=== PATIENT | female | born 1940 | race Caucasian/White ===

== ENCOUNTER 2019-02-07 14:55 | Inpatient (IN) | payer BC, OTHER ==
[~2019-02-07] VITALS: Ht 177.8 cm; Wt 105.1 kg
[2019-02-07] MEDS ORDERED: SODIUM CHLORIDE 0.9% 1,000 ML IV ONE ×2 (16:00→19:15)
[2019-02-07 16:05] LABS: Basophils # (auto) 0.1 uL; Eosinophils # (auto) 0.1 uL; Eosinophils % (auto) 0.9 % (0.0-7.0); Hematocrit 46.5 % (36.0-46.0); Hemoglobin 15.1 g/dL (12.2-16.2); Lymphocytes # (auto) 1.1 uL; Mean Corpuscular Hemoglobin 29.1 pg (28.0-32.0); Mean Corpuscular Hgb Conc. 32.5 g/dL (32.0-36.0); Mean Corpuscular Volume 89.5 fL (80.0-100.0); Monocytes # (auto) 0.9 uL; Monocytes % (auto) 7.9 % (0.0-12.0); Neutrophils # (auto) 8.9 uL; Neutrophils % (auto) 80.2 % (37.0-80.0); Platelet Count (auto) 265 10^3/uL (140-450); Red Cell Distribution Width 14.7 % (11.8-14.3); White Blood Cell 11.1 10^3/uL (4.4-10.8)
[2019-02-07 16:23] LABS: Magnesium 1.9 mg/dL (1.6-2.6)
[2019-02-07 16:33] LABS: INR 0.92 (0.9-1.15); Partial Thromboplastin Time 24.1 sec (23.64-32.05)
[2019-02-07 18:52] LABS: Albumin 3.6 g/dL (3.4-5.0); Calcium 9.4 mg/dL (8.5-10.1); Potassium 5.2 mmol/L (3.5-5.1)
[2019-02-07 19:01] LABS: BUN/Creatinine Ratio 16.1; Bilirubin, Total 1.4 mg/dL (0.2-1.0)
[2019-02-07] MEDS ORDERED: InsuLIN REG 1unit/0.01ml Soln (100units/ml) IV ONE (19:15)
[2019-02-07] MEDS ORDERED: GABAPENTIN 100 MG CAP PO ONE (20:00)
[2019-02-07] MEDS ORDERED: NITROGLYCERIN 0.4 MG SL TAB SL PRN (20:15)
[2019-02-07] MEDS ORDERED: DEXTROSE (50%) 50ML SYRG IV PRN (20:15)
[2019-02-07] MEDS ORDERED: MORPHINE SULF INJ 2 MG/ML SYRINGE 1ML IV PRN (20:15)
[2019-02-07] MEDS ORDERED: ACETAMINOPHEN 325 MG TAB PO PRN (20:15)
[2019-02-07] MEDS ORDERED: TEMAZEPAM 15 MG CAP PO PRN (20:15)
[2019-02-07] MEDS ORDERED: ONDANSETRON HCL 4 MG/2 ML VIAL IV PRN (20:15)
[2019-02-07] MEDS ORDERED: HYDROcodone-ACET 5/325MG TAB PO PRN (20:15)
[2019-02-07 21:35] LABS: Calcium 8.2 mg/dL (8.5-10.1); Potassium 3.9 mmol/L (3.5-5.1)
[2019-02-07 21:39] LABS: BUN/Creatinine Ratio 18.4; Bilirubin, Total 0.7 mg/dL (0.2-1.0); Total Protein 6.4 g/dL (6.4-8.2)
[2019-02-07] MEDS: GABAPENTIN 300 MG CAP PO SCH (22:00)
--- NOTE | 2019-02-07 22:31 | NUR ---
Telemetry admit from ER CLAUDIO KESSLER admitted to Telemetry unit. Patient oriented to JACKI PECK RN primary RN, unit, room, bed, and unit policies regarding patient care and visiting hours. Patient now on continuous telemetry monitoring, tele box #HC 40 and telemetry reading on arrival to unit is Sinus Rhythm. Patient placed on bedside oxygen, weighed by bedscale and encouraged to call if they need something. All questions and concerns addressed, patient verbalized understanding.
[2019-02-07] MEDS: InsuLIN REG 1unit/0.01ml Soln (100units/ml) SC SCH (23:51)
[2019-02-07] MEDS: ACCU-CHEK COMFORT CURVE STRIP VI SCH (23:52)
[2019-02-08] MEDS ORDERED: InsuLIN REG 1unit/0.01ml Soln (100units/ml) SC SCH
[2019-02-08] MEDS ORDERED: ACCU-CHEK COMFORT CURVE STRIP VI SCH
--- NOTE | 2019-02-08 | NUR ---
Transferred patient from room 275A to 287A per Sounding Device Operator request. Patient tolerated transfer well.
[2019-02-08 01:28] LABS: Urine Bacteria FEW /hpf (None Seen); Urine Blood Negative /uL (Negative); Urine Budding Yeast OCCASIONAL /hpf (None Seen); Urine Hyaline Cast MANY /lpf (0 - 2); Urine Mucus FEW (None Seen); Urine Specific Gravity 1.024 (1.001-1.035); Urine WBC 9 /hpf (0 - 5); Urine WBC Clumps PRESENT /hpf (None Seen)
[2019-02-08] MEDS: ACCU-CHEK COMFORT CURVE STRIP VI SCH ×6 (02:14→21:36)
[2019-02-08] MEDS: InsuLIN REG 1unit/0.01ml Soln (100units/ml) SC SCH ×6 (02:15→22:09)
[2019-02-08 04:53] VITALS: BP 101/45
[2019-02-08] MEDS: LEVOTHYROXINE SODIUM 50 MCG TAB PO SCH (06:41)
[2019-02-08 06:57] LABS: Basophils # (auto) 0.1 uL; Basophils % (auto) 0.9 % (0.0-2.0); Eosinophils # (auto) 0.4 uL; Eosinophils % (auto) 4.7 % (0.0-7.0); Hematocrit 41.9 % (36.0-46.0); Lymphocytes # (auto) 2.5 uL; Lymphocytes % (auto) 26.1 % (10.0-50.0); Mean Corpuscular Hemoglobin 29.4 pg (28.0-32.0); Mean Corpuscular Hgb Conc. 33.4 g/dL (32.0-36.0); Mean Corpuscular Volume 88.1 fL (80.0-100.0); Monocytes % (auto) 9.9 % (0.0-12.0); Neutrophils # (auto) 5.6 uL; Neutrophils % (auto) 58.4 % (37.0-80.0); Platelet Count (auto) 230 10^3/uL (140-450); Red Blood Cells 4.75 10^6/uL (4.0-5.20); Red Cell Distribution Width 14.7 % (11.8-14.3); White Blood Cell 9.6 10^3/uL (4.4-10.8)
[2019-02-08 07:24] LABS: BUN/Creatinine Ratio 23.6; Potassium 4.1 mmol/L (3.5-5.1)
--- NOTE | 2019-02-08 07:41 | NUR ---
Endorsed care to day shift RN.
[2019-02-08 09:00] VITALS: BP 118/60
[2019-02-08] MEDS: MECLIZINE HCL 25 MG TAB PO SCH ×2 (09:37→21:36)
[2019-02-08] MEDS: PANTOPRAZOLE 40 MG TAB PO SCH (09:37)
[2019-02-08] MEDS: GABAPENTIN 300 MG CAP PO SCH ×2 (09:37→21:36)
[2019-02-08] MEDS: amLODIPine BESYLATE 5 MG TAB PO SCH (09:45)
[2019-02-08] MEDS ORDERED: LORazepam 2MG/ML-1ML VIAL IV ONE (10:15)
[2019-02-08] MEDS ORDERED: LEVO500T21 PO (10:48)
[2019-02-08] MEDS ORDERED: PANT40TA2 PO (12:23)
[2019-02-08] MEDS ORDERED: GLIP10TA9 PO (12:23)
[2019-02-08] MEDS ORDERED: GABA600T PO (12:23)
[2019-02-08] MEDS ORDERED: IRBE300T46 PO (12:23)
[2019-02-08] MEDS ORDERED: DULO60CA PO (12:23)
[2019-02-08] MEDS ORDERED: LEVO175T31 PO (12:23)
[2019-02-08] MEDS ORDERED: INSU75IN2 SC (12:23)
[2019-02-08 13:00] VITALS: BP 137/85
--- NOTE | 2019-02-08 14:04 | NUR ---
SS consult: Alireza Lay at [facility] has accepted pt and care will begin on Sunday
[2019-02-08] MEDS: LEVOFLOXACIN 500MG 100 ML IV SCH (16:11)
[2019-02-08 16:27] VITALS: BP 145/69
[2019-02-08 17:11] VITALS: BP_SYST 111; BP_SYST 132; BP_SYST 153; BP_DIAS 60; BP_DIAS 64; BP_DIAS 77
--- NOTE | 2019-02-08 17:17 | NUR ---
informed Clotilde CHAPMAN for [facility]
--- NOTE | 2019-02-08 17:24 | NUR ---
NEURO AT BEDSIDE DR. ESTRADA AT BEDSIDE, AWARE OF PATIENT'S ORTHOSTATIC BP, ORDERED TO HOLD DISCHARGE. INFORMED DR. Beata CABALLERO MD HAS GIVEN NEW ORDERS.
[2019-02-08] MEDS ORDERED: SODIUM CHLORIDE 0.9% 2,000 ML IV ONE (17:30)
--- NOTE | 2019-02-08 19:10 | NUR ---
Opening Shift Note Assumed care of patient, awake and alert. No S/S of distress/SOB or pain. Instructed on POC and to call for assist PRN, will continue to monitor for changes Q1hr and PRN. Side rails up x2. Bed locked in lowest position. Call light within reach. Bed alarm on for safety. Family at bedside.
--- NOTE | 2019-02-08 21:01 | NUR ---
Assessed for orthostatic hypotension. BP laying down at 128/69 BP sitting down at 146/74 BP standing up at 135/53 Patient verbalized some dizziness upon standing up. Will notify Neurologist Dr. Castillo.
--- NOTE | 2019-02-08 21:15 | NUR ---
Called Neurologist Dr. Castillo Regarding patient status. Notified on patients orthostatic hypotension assessments. Notified that patient feels dizziness upon standing up. Received clearance to continue discharge. Will notify Dr. Lalo Wagner.
--- NOTE | 2019-02-08 21:25 | NUR ---
Attempted to call Dr. Wagner Regarding neuro clearance and discharge. Dr. Cano answered and is covering for Dr. Wagner. Discussed with Dr. Cano that the patient was cleared to go home by the neurologist Dr. Castillo. Notified Dr. Cano that the patient was not ready to go home with symptoms of dizziness and that the patient had no ride home this late and that the patient requests to hold discharge order until tomorrow morning instead. Dr. Cano ordered to continue discharge and to find the patient a ride home anyway possible. Will notify charge and attempt to contact patients family member.
[2019-02-08 22:00] VITALS: BP_SYST 128; BP_SYST 135; BP_SYST 146; BP_DIAS 53; BP_DIAS 69; BP_DIAS 74
--- NOTE | 2019-02-08 22:00 | NUR ---
Taxi Charge nurse requested a taxi voucher in order to take patient home. Will discharge patient once transportation is set up.
--- NOTE | 2019-02-08 22:15 | NUR ---
Discharge held Patient family spoke to broadcast field supervisor and will file complaint regarding discharge. Charge nurse and Director Of Guidance aware. Patient in her room at this time.
--- NOTE | 2019-02-08 22:30 | NUR ---
Called Dr. Cano Regarding Discharge Notified Dr. Cano that the family will be filling a complaint regarding discharge and that the patient is still here in the hospital. Dr. Cano said he did not write the order and that he was just following their policy. Ordered to hold discharge and to notify Dr. Wagner in the morning. Continue care.
--- NOTE | 2019-02-08 22:45 | NUR ---
IV placement Patient refused to have a new IV placed. Instructed patient the importance of having IV access while in the hospital. Explained to the patient that we needed an IV accessed just in case of emergency even though there is no medication due at this time. Patient continuous to refuse IV placement. Continue care.
--- NOTE | 2019-02-09 01:03 | NUR ---
Rounds Patient in bed appears to be sleeping with breathing even and unlabored. Will continue to monitor. Bed alarm on for safety precaution.
[2019-02-09] MEDS: InsuLIN REG 1unit/0.01ml Soln (100units/ml) SC SCH ×3 (02:38→10:00)
[2019-02-09] MEDS: ACCU-CHEK COMFORT CURVE STRIP VI SCH ×3 (02:39→09:49)
[2019-02-09 05:00] VITALS: BP 152/64
[2019-02-09] MEDS: LEVOTHYROXINE SODIUM 50 MCG TAB PO SCH (07:01)
--- NOTE | 2019-02-09 07:06 | NUR ---
Endorsed care to day shift RN.
--- NOTE | 2019-02-09 07:30 | NUR ---
Opening Shift Note Assumed care of patient, awake and alert. Sitting up at bedside, eating breakfast. No reports of dizziness or pain. Bed is at lowest settings and locked. Call light within reach, instructed on POC and to call for assist PRN, will continue to monitor for changes Q1hr and PRN.
[2019-02-09 08:42] VITALS: BP 145/78
[2019-02-09] MEDS: GABAPENTIN 300 MG CAP PO SCH (09:48)
[2019-02-09] MEDS: MECLIZINE HCL 25 MG TAB PO SCH (09:49)
[2019-02-09] MEDS: amLODIPine BESYLATE 5 MG TAB PO SCH (09:49)
[2019-02-09] MEDS: PANTOPRAZOLE 40 MG TAB PO SCH (09:49)
[2019-02-09] MEDS: LEVOFLOXACIN 500MG 100 ML IV SCH (10:00)
--- NOTE | 2019-02-09 10:34 | NUR ---
WOUND CARE NOTE: Attempted to see patient per wound care request regarding "Diabetic Foot Ulcer, Rt Foot". Per RN Dorita patient has Discharge order and "she's going samantha". She added that she cleansed patient's R foot intact calloused DFU with Betadine and covered with dry sterile dressing per MD's order.
--- NOTE | 2019-02-10 12:46 | NUR ---
faxed ss order for HH to [facility] so they can give auth to [facility]
== END 2019-02-09 11:20 | disposition home health service (06) | DRG 683 ==
LOC: ER 14:59 → TELE 20:40 → TELE-WESTW 22:31
PROVIDERS: ADMIT Nurse Practitioner; ATTEND Nurse Practitioner
DX: N17.9 Acute kidney failure, unspecified (principal); N39.0 Urinary tract infection, site not specified; E86.0 Dehydration; I11.9 Hypertensive heart disease without heart failure; E11.42 Type 2 diabetes mellitus with diabetic polyneuropathy; I95.1 Orthostatic hypotension; E03.9 Hypothyroidism, unspecified; N18.9 Chronic kidney disease, unspecified; E11.22 Type 2 diabetes mellitus with diabetic chronic kidney disease; E11.21 Type 2 diabetes mellitus with diabetic nephropathy; I13.10 Hypertensive heart and chronic kidney disease without heart failure, with stage 1 through stage 4 chronic kidney disease, or unspecified chronic kidney disease; L97.519 Non-pressure chronic ulcer of other part of right foot with unspecified severity; E66.01 Morbid (severe) obesity due to excess calories; E87.5 Hyperkalemia; S09.90XA Unspecified injury of head, initial encounter; W18.39XA Other fall on same level, initial encounter; Y93.89 Activity, other specified; Y92.89 Other specified places as the place of occurrence of the external cause; Y99.8 Other external cause status; Z88.1 Allergy status to other antibiotic agents; Z82.49 Family history of ischemic heart disease and other diseases of the circulatory system; Z83.3 Family history of diabetes mellitus; Z90.49 Acquired absence of other specified parts of digestive tract; Z68.33 Body mass index [BMI] 33.0-33.9, adult; R55 Syncope and collapse
CPT/HCPCS: 36415; 70450; 70551; 71045; 72125; 80048; 80053; 81001; 82010; 82962; 83036; 83735; 83880; 84443; 84484; 85025; 85610; 85730; 93306; 93886; 96361; 96374; G0378; J1815; J1956